=== PATIENT | male | born 1950 | race Caucasian/White ===

== ENCOUNTER 2016-11-29 10:49 | Outpatient (CLI) | payer OTHER | END 2016-11-29 10:50 | disposition home or self-care (01) | DX: M17.11 Unilateral primary osteoarthritis, right knee (principal); M25.561 Pain in right knee ==

== ENCOUNTER 2017-08-24 08:04 | Outpatient (CLI) | payer OTHER | END 2017-08-24 08:05 | disposition home or self-care (01) | LOC: LAB.F 08:04 | PROVIDERS: ATTEND Family Medicine | DX: Z11.59 Encounter for screening for other viral diseases (principal) | CPT/HCPCS: 36415; 86803 ==

== ENCOUNTER 2017-11-01 12:04 | Outpatient (CLI) | payer MEDICARE, OTHER ==
--- NOTE | 2017-11-01 17:29 | XRAY Preliminary Report ---
Exam: XR HAND 3 VIEW LT IMPRESSION: 1. Equivocal nondisplaced avulsion fracture anterior base fourth distal phalanx. Correlate clinically to determine significance. 2. Mild inflammatory arthropathy of the interphalangeal joints. [facility] SITE ID: [id number]
--- NOTE | 2017-11-01 17:45 | XRAY Report ---
EXAM: LEFT HAND RADIOGRAPHY EXAM DATE: 11/01/2017 12:26 PM. CLINICAL HISTORY: Fourth finger and hand pain following fall onto outstretched hand. COMPARISON: 02/11/2015. TECHNIQUE: 3 views. FINDINGS: Bones: Equivocal 4 x 6 mm avulsion fracture anterior aspect base of fourth distal phalanx. The rest of the trabecular and cortical patterns are unremarkable. Joints: Progression of mild inflammatory arthropathy involving the interphalangeal joints, greatest i nvolving the DIP joints. No subluxation. Soft Tissues: Normal. No soft tissue swelling. IMPRESSION: 1. Equivocal nondisplaced avulsion fracture anterior base fourth distal phalanx. Correlate clinically to determine significance. 2. Mild inflammatory arthropathy of the interphalangeal joints. [facility] Referring Provider Line: [phone] SITE ID: [id number]
== END 2017-11-01 12:05 | disposition home or self-care (01) ==
LOC: DI.S 12:04
PROVIDERS: ATTEND Family Medicine
DX: S69.92XA Unspecified injury of left wrist, hand and finger(s), initial encounter (principal); S62.665A Nondisplaced fracture of distal phalanx of left ring finger, initial encounter for closed fracture

== ENCOUNTER 2018-04-20 11:54 | Outpatient (CLI) | payer MEDICARE, OTHER ==
[2018-04-20 18:26] LABS: CHOL/HDL RATIO 4.2 (<5.0); CHOLESTEROL 198 mg/dL; HDL CHOLESTEROL 47 mg/dL; LDL CHOLESTEROL,CALCULATED 125 mg/dL; LDL/HDL RATIO 2.7 (<3.6); VLDL CHOLESTEROL 26 mg/dL
[2018-04-20 18:39] LABS: THYROID STIMULATING HORMONE 0.78 uIU/mL (0.34-5.60)
[2018-04-20 18:41] LABS: FREE T4 (FREE THYROXINE) 0.61 ng/dL (0.58-1.64)
[2018-04-20 18:45] LABS: FERRITIN 38.3 ng/mL (23.9-336.2); TOTAL T3 2.46 ng/mL (0.87-1.78)
[2018-04-24 21:18] LABS: T3 REVERSE 10 ng/dL (8-25)
== END 2018-04-20 11:55 | disposition home or self-care (01) ==
LOC: LAB.F 11:54
PROVIDERS: ATTEND Family Medicine
DX: Z00.00 Encounter for general adult medical examination without abnormal findings (principal); D64.9 Anemia, unspecified; E78.00 Pure hypercholesterolemia, unspecified; E55.9 Vitamin D deficiency, unspecified
CPT/HCPCS: 36415; 80061; 82306; 82626; 82728; 83721; 84439; 84443; 84480; 84481; 84482

== ENCOUNTER 2018-05-14 03:56 | Outpatient (CLI) | payer MEDICARE, OTHER | END 2018-05-14 03:57 | disposition critical access hospital (66) | LOC: EMS 03:56 | PROVIDERS: ATTEND Surgery | DX: R10.9 Unspecified abdominal pain (principal) | CPT/HCPCS: A0425; A0429 ==

== ENCOUNTER 2018-05-14 04:56 | Observation (INO) | payer MEDICARE, OTHER ==
[2018-05-14] MEDS ORDERED: SODIUM CHLORIDE 0.9% 1,000 ML IV ONE ×2 (05:03→06:23)
[2018-05-14] MEDS ORDERED: MORPHINE 10 MG/ML VIAL IVP STA (05:03)
--- NOTE | 2018-05-14 05:06 | ED Physician Documentation ---
PD HPI ABD PAIN - Stated complaint Stated Complaint: ABD PAIN - Chief complaint Chief Complaint: Abd Pain - History obtained from History obtained from: Patient, EMS - History of Present Illness Timing - onset: Yesterday Timing - details: Gradual onset, Still present Quality: Cramping, Aching, Sharp Location: RUQ, RLQ Associated symptoms: Fever, Loss of appetite. No: Nausea, Vomiting, Hematemesis , Diarrhea Similar symptoms before: Has not had sx before Recently seen: Not recently seen - Additional information Additional information: Patient is a 67 year old male with a history of dyslipidemia who is presenting to the emergency department for abdominal pain. patient states that the symptoms started yesterday afternoon. Patient states that the last thing that he ate was bread pudding and the pain started not too long after that. patient reports right upper quadrant and right lower quadrant pain. Patient denies any nausea or vomiting or urinary complaints. Review of Systems Ten Systems: 10 systems reviewed and negative Constitutional: denies: Fever Cardiac: denies: Chest pain / pressure, Palpitations GI: reports: Abdominal Pain, Nausea, Vomiting : denies: Dysuria, Frequency, Hesitancy PD PAST MEDICAL HISTORY - Past Medical History Cardiovascular: None, High cholesterol Respiratory: None Endocrine/Autoimmune: None GI: GERD : None Psych: Depression Musculoskeletal: None Derm: None - Past Surgical History General: Colonoscopy HEENT: Tonsil/Adenoidectomy - Present Medications Home Medications: Ambulatory Orders Medication Instructions Recorded Confirmed Buspirone HCl 15 mg PO DAILY 06/25/13 05/14/18 Sertraline HCl [Zoloft] 100 mg PO DAILY 06/25/13 05/14/18 Simvastatin [Zocor] 40 mg PO QPM 06/25/13 05/14/18 lamoTRIgine [Lamotrigine] 200 mg PO BID 06/25/13 05/14/18 Ezetimibe [Zetia] 10 mg PO QD 06/26/13 05/14/18 Omeprazole [PriLOSEC] 20 mg PO BIDAC 06/26/13 05/14/18 Tamsulosin [Flomax] 0.4 mg PO DAILY 06/26/13 05/14/18 Fexofenadine HCl [Fexofenadine HCl] 180 mg PO DAILY 05/14/18 05/14/18 Fluticasone/Salmeterol [Advair 1 puffs INH BID 05/14/18 05/14/18 500-50 Diskus] Liothyronine [Cytomel] 15 mcg PO DAILY 05/14/18 05/14/18 Meloxicam [Meloxicam] 15 mg PO DAILY 05/14/18 05/14/18 Tiotropium [place] [Spiriva 2 puffs INH DAILY 05/14/18 05/14/18 Respimat] - Allergies Allergies/Adverse Reactions: Allergies Allergy/AdvReac Type Severity Reaction Status Date / Time No Known Drug Allergies Allergy Verified 05/14/18 05:02 - Social History Does the pt smoke?: No Smoking Status: Never smoker Does the pt drink ETOH?: Yes - Immunizations Immunizations are current?: Yes - POLST Patient has POLST: Yes POLST Status: Full Code PD ED PE NORMAL - General General: Alert and oriented X 3 - HEENT HEENT: Atraumatic - Cardiac Cardiac: RRR - Respiratory Respiratory: No respiratory distress, Clear bilaterally - Derm Derm: Normal color, Warm and dry - Extremities Extremities: No deformity - Neuro Neuro: Alert and oriented X 3 Eye Opening: Spontaneous Motor: Obeys Commands Verbal: Oriented GCS Score: 15 - Psych Psych: Normal mood PD ED PE EXPANDED - General General: Alert, No acute distress - HEENT HEENT: Dry mucous membranes - Abdomen Abdomen: Tender to palpation, Guarding, RUQ, RLQ Results - Vitals Vitals: Vital Signs - 24 hr 05/14/18 05/14/18 04:58 06:15 Temperature 37.2 C Heart Rate 86 78 Respiratory 14 15 Rate Blood Pressure 130/83 H 121/68 O2 Saturation 96 99 Oxygen O2 Source Room air - Labs Labs: Laboratory Tests 05/14/18 05/14/18 05/14/18 05:13 05:13 05:13 WBC 18.5 H RBC 4.74 Hgb 14.3 Hct 43.2 MCV 91.1 MCH 30.1 MCHC 33.0 RDW 14.0 Plt Count 372 MPV 6.2 L Neut # (Auto) 15.5 H Lymph # (Auto) 1.0 L Gallia # (Auto) 1.6 H Eos # (Auto) 0.3 Baso # (Auto) 0.1 Absolute Nucleated RBC 0.00 Nucleated RBC % 0.0 Sodium 131 L Potassium 3.9 Chloride 95 L Carbon Dioxide 29 Anion Gap 7.0 BUN 19 Creatinine 0.7 Estimated GFR (MDRD) 113 Glucose 132 H Lactic Acid Calcium 9.0 Total Bilirubin 0.9 AST 21 ALT 18 Alkaline Phosphatase 71 Troponin I < 0.04 Total Protein 7.5 Albumin 4.0 Globulin 3.5 Albumin/Globulin Ratio 1.1 Lipase 18 L Urine Color Urine Clarity Urine pH Ur Specific [place] Urine Protein Urine Glucose (UA) Urine Ketones Urine Occult Blood Urine Nitrite Urine Bilirubin Urine Urobilinogen Ur Leukocyte Esterase Ur Microscopic Review Urine Culture Comments 05/14/18 05/14/18 05:13 05:23 WBC RBC Hgb Hct MCV MCH MCHC RDW Plt Count MPV Neut # (Auto) Lymph # (Auto) Gall[place] # (Auto) Eos # (Auto) Baso # (Auto) Absolute Nucleated RBC Nucleated RBC % Sodium Potassium Chloride Carbon Dioxide Anion Gap BUN Creatinine Estimated GFR (MDRD) Glucose Lactic Acid 1.3 Calcium Total Bilirubin AST ALT Alkaline Phosphatase Troponin I Total Protein Albumin Globulin Albumin/Globulin Ratio Lipase Urine Color YELLOW Urine Clarity CLEAR Urine pH 6.5 Ur Specific [place] 1.020 Urine Protein NEGATIVE Urine Glucose (UA) NEGATIVE Urine Ketones 40 H Urine Occult Blood NEGATIVE Urine Nitrite NEGATIVE Urine Bilirubin NEGATIVE Urine Urobilinogen 0.2 (NORMAL) Ur Leukocyte Esterase NEGATIVE Ur Microscopic Review NOT INDICATED Urine Culture Comments NOT INDICATED - Rads (name of study) ct abd/pelvis Radiology: Final report received (enlarged gallbladder, wall thickening and surrounding fluid consistent with cholecystitis) PD MEDICAL DECISION MAKING - ED course Complexity details: reviewed old records, reviewed results, re-evaluated patient , considered differential, d/w patient ED course: Patient was seen and examined at bedside. IV access was gained and labs were drawn. Imaging was ordered. Patient was treated with a fluid bolus and morphine for pain. When patient returned from imaging results were reviewed. Patient was found to have a leukocytosis of 18.[address] findings of acute cholecystitis. call worker surgeon was contacted and the case was discussed with Dr. Jac Maciel who stated he would consult on the patient. Patient was started on zosyn. hospitalist was contacted and the patient was admitted for further care and likely surgery. - Sepsis Event Vital Signs: Vital Signs - 24 hr 05/14/18 05/14/18 04:58 06:15 Temperature 37.2 C Heart Rate 86 78 Respiratory 14 15 Rate Blood Pressure 130/83 H 121/68 O2 Saturation 96 99 Oxygen O2 Source Room air Departure - Departure Disposition: 66 [facility] DC/[facility] Clinical Impression: Cholecystitis Condition: Good Discharge Date/Time: 05/14/18 08:16
[2018-05-14 05:34] LABS: BILIRUBIN,URINE NEGATIVE (NEGATIVE); GLUCOSE, URINE (UA) NEGATIVE (NEGATIVE); KETONES,URINE (UA) 40 mg/dL (NEGATIVE); LEUKOCYTE ESTERASE, URINE NEGATIVE (NEGATIVE); NITRITE,URINE NEGATIVE (NEGATIVE); OCCULT BLOOD,URINE NEGATIVE (NEGATIVE); PH,URINE 6.5 PH (5.0-7.5); PROTEIN,URINE NEGATIVE (NEGATIVE); UROBILINOGEN,URINE 0.2 (NORMAL) E.U./dL (NORMAL)
[2018-05-14 05:39] LABS: CLARITY,URINE CLEAR (CLEAR)
[2018-05-14 05:40] LABS: BASOPHILS # (AUTO) 0.1 10^3/uL (0.0-0.1); BASOPHILS % (AUTO) 0.5 %; EOSINOPHILS # (AUTO) 0.3 10^3/uL (0.0-0.7); EOSINOPHILS % (AUTO) 1.4 %; HGB - HEMOGLOBIN 14.3 g/dL (14.0-18.0); LYMPHOCYTES % (AUTO) 5.5 %; MEAN CORPUSCULAR HEMOGLOBIN 30.1 pg (27.0-31.0); MEAN CORPUSCULAR VOLUME 91.1 fL (80.0-94.0); MEAN PLATELET VOLUME 6.2 fL (7.4-11.4); MONOCYTES # (AUTO) 1.6 10^3/uL (0.0-1.0); MONOCYTES % (AUTO) 8.8 %; NEUTROPHILS # (AUTO) 15.5 10^3/uL (1.5-6.6); NEUTROPHILS % (AUTO) 83.8 %; PLT - PLATELET COUNT 372 10^3/uL (130-450); RED BLOOD COUNT 4.74 10^6/uL (4.70-6.10); WHITE BLOOD COUNT 18.5 x10^3/uL (4.8-10.8)
[2018-05-14 05:51] LABS: ALBUMIN/GLOBULIN RATIO 1.1 (1.0-2.2); BILIRUBIN,TOTAL 0.9 mg/dL (0.2-1.0); CREATININE 0.7 mg/dL (0.6-1.2); TOTAL PROTEIN 7.5 g/dL (6.7-8.2)
[2018-05-14] MEDS ORDERED: IOPAMIDOL-300 100 ML VIAL ONE (06:25)
[2018-05-14] MEDS ORDERED: IOPAMIDOL-300 100 ML VIAL IVP ONE (06:29)
[2018-05-14] MEDS ORDERED: PIPERACILLIN/TAZOBACTAM 3.375 GM in SODIUM CHLORIDE 0.9% MINIBAG 100 ML IV STA (06:58)
--- NOTE | 2018-05-14 07:14 | CT Report ---
Procedure Date: 05/14/2018 Accession Number: [id number] / [id number] Procedure: CT - Abdomen/Pelvis W/ CPT Code: FULL RESULT: EXAM: CT ABDOMEN AND PELVIS EXAM DATE: 05/14/2018 06:42 AM. CLINICAL HISTORY: Ruq and rlq abd pain. COMPARISONS: None. TECHNIQUE: Routine helical CT imaging was performed through the abdomen and pelvis. IV contrast: ISOVUE 300 100mL. Enteric contrast: No. Reconstructions: Coronal and sagittal. In accordance with CT protocol optimization, one or more of the following dose reduction techniques were utilized for this exam: automated exposure control, adjustment of mA and/or KV based on patient size, or use of iterative reconstructive technique. FINDINGS: Lung Bases: Unremarkable. Liver: Normal. Gallbladder/Bile Ducts: The gallbladder is distended, and there is mild wall thickening as well as adjacent inflammatory fat stranding. The common bile duct is dilated, measuring up to 10 mm in diameter. No stones visible by CT. No evidence of intrahepatic biliary dilatation. Spleen: Normal. Pancreas: Mild to moderate atrophy. Otherwise within normal limits. Adrenal Glands: Normal. Kidneys: Nonobstructing calculi in the right kidney measuring up to 3 mm. Punctate nonobstructing calculi in the inferior pole of the left kidney. No hydronephrosis bilaterally. Peritoneal Cavity/Bowel: No ascites or pneumoperitoneum. No bowel obstruction or abnormal stool burden. Mild diverticulosis without diverticulitis. The appendix is not visualized and may be surgically absent. Pelvic Organs: The urinary bladder and visualized pelvic organs demonstrate no significant abnormality. Vasculature: Mild atherosclerosis without aneurysm. Bones: No significant abnormality. Other: None. IMPRESSION: 1. Findings are concerning for acute cholecystitis. Consider ultrasound for further evaluation. 2. Chronic and incidental findings as above. [facility]
[2018-05-14] MEDS ORDERED: SODIUM CHLORIDE FLUSH 0.9% 10 ML SYRINGE IVP PRN ×2 (07:18→13:34)
--- NOTE | 2018-05-14 07:23 | HISTORY & PHYSICAL EXAMINATION ---
Chief Complaint - Chief Complaint Chief Complaint: abdominal pain History of Present Illness - Admitted From Admitted From:: ED - History Obtained From Records Reviewed: yes History obtained from: chart review, patient Exam Limitations: none - History of Present Illness HPI Comment/Other: Estrada Salvador is a 67-year old male with a past medical history of BPH, JACKIE-uses a nasal CPAP, hyperlipidemia, asthma, chronic sinusitis, depression and GERD. He was in his usual state of health when he began having extreme abdominal pain that was sharp, dull and cramping in his RLQ and started yesterday at 12 noon. He does not admit to anything out of the ordinary in his diet prior to this, and this has never happened before. This pain continued, but varied in intensity and was accompanied with nausea and emesis. He went to bed and was awoke by this agonizing, crippling pain that was much worse, so he and his called 911. Once in the ED, he had imaging that showed likely cholecystitis. He denied shortness of breath, chest pain, diarrhea, bleeding, dizziness, recent illness, fever, chills or headache. Lab results show an elevated WBC of 18.5, low sodium of 131, negative troponin and no other lab abnormalities. General surgery was consulted and hospitalist will admit to observation for management of his other chronic medical conditions. 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 He does not have any blood related siblings. Living arrangement: At home Living Situation: With spouse/s.o. Social History Notes: The patient moved to the [place] a few years ago to retire. 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 He lives independently with his , has a dog named Renuka. He denies alcohol abuse, tobacco or illicit drug use. He wishes to be a FULL code. - Substance History Use: Uses substance without health or social issues: NONE Abuse: Recurrent use of substance despite neg consequences: NONE Dependence: Experiences withdrawal or developed tolerances: NONE - POLST Patient has POLST: No POLST Status: Full Code Meds/Allgy - Home Medications Home Medications: Ambulatory Orders Medication Instructions Recorded Confirmed Buspirone HCl 15 mg PO DAILY 06/25/13 05/14/18 Sertraline HCl [Zoloft] 100 mg PO DAILY 06/25/13 05/14/18 Simvastatin [Zocor] 40 mg PO QPM 06/25/13 05/14/18 lamoTRIgine [Lamotrigine] 200 mg PO BID 06/25/13 05/14/18 Ezetimibe [Zetia] 10 mg PO QD 06/26/13 05/14/18 Omeprazole [PriLOSEC] 20 mg PO BIDAC 06/26/13 05/14/18 Tamsulosin [Flomax] 0.4 mg PO DAILY 06/26/13 05/14/18 Fexofenadine HCl [Fexofenadine HCl] 180 mg PO DAILY 05/14/18 05/14/18 Fluticasone/Salmeterol [Advair 1 puffs INH BID 05/14/18 05/14/18 500-50 Diskus] Liothyronine [Cytomel] 15 mcg PO DAILY 05/14/18 05/14/18 Meloxicam [Meloxicam] 15 mg PO DAILY 05/14/18 05/14/18 Tiotropium [place] [Spiriva 2 puffs INH DAILY 05/14/18 05/14/18 Respimat] - Allergies Allergies/Adverse Reactions: Allergies Allergy/AdvReac Type Severity Reaction Status Date / Time No Known Drug Allergies Allergy Verified 05/14/18 05:02 Review of Systems - Constitutional Constitutional: reports: Poor appetite. denies: Fatigue, Fever, Chills - Eyes Eyes: denies: Pain, Irritation, Amaurosis, Blurred vision - Ears, Nose & Throat Ears, Nose & Throat: reports: Nasal congestion (chronic), Postnasal drainage. denies: Ear pain, Hearing loss, Hearing aids, Tinnitus - Cardiovascular Cariovascular: denies: Irregular heart rate, Palpitations, Chest pain, Edema - Respiratory Respiratory: reports: Cough, Wheezing - Gastrointestinal Gastrointestinal: reports: Abdominal pain, Abdominal distention, Change in bowel habits, Nausea, Reflux/heartburn, Bloating, Poor appetite - Genitourinary Genitourinary: reports: Nocturia - Musculoskeletal Musculoskeletal: denies: Muscle pain, Back pain, Muscle aches, Stiffness - Integumentary Integumentary: reports: Dryness. denies: Rash, Pruritis, Lesions - Neurological Neurological: reports: Headache. denies: General weakness, Focal weakness - Psychiatric Psychiatric: reports: Depression. denies: Suicidal - Endocrine Endocrine: denies: Polyuria, Polydypsia - Hematologic/Lymphatic Hematologic/Lymphatic: denies: Anemia, Bruising, Petechiae, Recurrent infections - All Other Systems All Other Systems: reports: Reviewed and negative Exam - Vital Signs Reviewed Vital Signs: Yes Vital Signs: Vital Signs x48h Temp Pulse Resp BP Pulse Ox 05/14/18 06:15 78 15 121/68 99 05/14/18 04:58 37.2 C 86 14 130/83 H 96 - Physical Exam General Appearance: positive: No acute distress, Alert Eyes Bilateral: positive: Normal inspection, PERRL ENT: positive: ENT inspection nml, Pharynx nml, No signs of dehydration Neck: positive: Nml inspection, Thyroid nml, No JVD, Trachea midline Respiratory: positive: Chest non-tender, No respiratory distress, Wheezes Cardiovascular: positive: Regular rate & rhythm, No gallop, Systolic murmur Peripheral Pulses: positive: 2+ Abdomen: positive: Tenderness (RLQ pain, increased with palpation), Guarding, Rebound, Abnml bowel sounds, Other (rounded, soft) Back: positive: Nml inspection Skin: positive: No rash, Warm, Dry Extremities: positive: Non-tender, Full ROM, Nml appearance, No pedal edema Neurologic/Psychiatric: positive: Oriented x3, CN's nml (2-12), Motor nml, Sensation nml, Mood/affect nml Reflexes: Bicep (R): 2+, Bicep (L): 2+ Conclusion/Plan - Problem List (1) Cholecystitis Conclusion/Plan: The patient was brought to the ED via ambulance as he had crippling pain in his right lower abdomen. Upon imaging, the gall bladder is noted to be distended, with mild wall thickening, and adjacent inflammatory fat stranding. Also, the common bile duct was dilated at [address] Cirilo Maciel was consulted and he will plan for a laproscopic surgery for removal of the gall bladder. Plan: Surgery this morning. Using the revised cardiac risk index for pre-operative risk this patient is 0.04 %. (2) Abdominal pain Conclusion/Plan: The patient started having abdominal pain at 12 noon yesterday and this pain continued, and eventually woke him up in the night. He describes the pain as cramping, aching, dull, and sharp and points to RLQ as the location. He was given IV morphine in the ED, which improved his pain to the point where when I first met him he was able to smile. Imaging confirms a likely acute cholecystitis. Plan: Continue to treat for pain using IV medications. (3) Hyperlipidemia Conclusion/Plan: The patient denies prior IN or strokes. He is precribed Zetia and a statin at home. He denies daily exercise, but believes his diet is healthy. Plan: Resume med post op. (4) JACKIE (obstructive sleep apnea) Conclusion/Plan: The patient believes he was first diagnosed with this about 5 years ago and sees a bobbin painter in the [place] [facility]. He uses a nasal device nightly. He is found to have a R BBB on EKG which can be seen with right heart strain. Plan: Obtain Echo and encourage home unit use. (5) Asthma Conclusion/Plan: The patient takes a LABA at home and was seen by his PCP within the last month for this. He denies recent pneumonia or increased SOB. Upon exam today, wheezing is appreciated both posterior and anterior chest. He is also found to have upper airway congestions, that he attributes to his CPAP use. He denies chronic steroid nasal spray or daily nasal cleanse. Plan: Prescribed Flonase, and recommend chronic use. Obtain Echo, encourage him to use home CPAP unit. Qualifiers: Asthma severity: moderate - Lab Results Lab results reviewed: Yes Fish Bones: 05/14/18 05:13 05/14/18 05:13 - Diagnostic Imaging Results Diagnostic Imaging Results: positive: Prelim report reviewed, Final report reviewed Diagnostic Imaging Results Comments: Abdominal/pelvis CT: IMPRESSION: 1. Findings are concerning for acute cholecystitis. Consider ultrasound for further evaluation. 2. Chronic and incidental findings as above. Chest x-ray completed and pending. Echocardiogram ordered and will be completed post op. - EKG Results EKG Interpreted Independently: Yes EKG Comparison: Changed from prior EKG (R BBB) Core Measures - Anticipated LOS I expect patient to be DC'd or transferred within 96 hours.: Yes - DVT/VTE - Prophylaxis VTE/DVT Device ordered at admit?: Yes VTE/DVT Prophylaxis med ordered at admit?: No Not Ordered - Medical Reason: Contraindicated - Stroke - Rehab Assessment Rehab services assessment to be ordered?: No Not Ordered - Medical Reason: Contraindicated - AMI - Statin at Admit Aspirin Prescribed on Admit: Yes Not Ordered - Medical Reason: Contraindicated
[2018-05-14] MEDS: POLYETHYLENE GLYCOL 3350 17 GM PACKET PO SCH (08:35)
--- NOTE | 2018-05-14 09:19 | CONSULTATION NOTE ---
Referring Provider Name of Referring Provider:: KELLEN Lisa Consult Date: 05/14/18 Chief Complaint - Chief Complaint Chief Complaint: abdominal pain History of Present Illness - Admitted From Admitted From:: ER - History Obtained From Records Reviewed: yes History obtained from: pt Exam Limitations: none - History of Present Illness HPI Comment/Other: 67 yo male with abrupt onset of severe constant steady right sided abdominal pain approximately 24 hours ago. Sx began after eating bread pudding for breakfast. No fever/chills, N/V, change in bowel habits, melena or hematochezia , wt changes, dysuria or prior similar episodes. He has a hx of GERD for many years well controlled with PPI therapy with no dysphagia and a favorable EGD approx 5 yrs ago. No hx PUD, hepatitis/jaundice. Unknown FH due to his being adopted. He reports a nl colonoscopy in 2012. He presented to the ER early this am when sx failed to improve. He is feeling better now after administration of narcotics. History - Past Medical History Cardiovascular: reports: High cholesterol Respiratory: reports: Asthma, Other (environmental allergies) Neuro: reports: None Endocrine/Autoimmune: reports: HyPOthyroidism GI: reports: GERD : reports: Benign prostate hypertrophy HEENT: reports: None Psych: reports: Depression, Anxiety Musculoskeletal: reports: None Derm: reports: None MRSA Hx?: No - Past Surgical History General: reports: Colonoscopy, EGD HEENT: reports: Tonsil/Adenoidectomy - Family & Social History Family History Comment/Other: unknown/adopted Living arrangement: At home Living Situation: With spouse/s.o. - Substance History Use: Uses substance without health or social issues: Alcohol (1-2 drinks/day), Cannabis (1-2 times/week) - POLST Patient has POLST: Yes POLST Status: Full Code Meds/Allgy - Home Medications Home Medications: Ambulatory Orders Medication Instructions Recorded Confirmed Buspirone HCl 15 mg PO DAILY 06/25/13 05/14/18 Sertraline HCl [Zoloft] 100 mg PO DAILY 06/25/13 05/14/18 Simvastatin [Zocor] 40 mg PO QPM 06/25/13 05/14/18 lamoTRIgine [Lamotrigine] 200 mg PO BID 06/25/13 05/14/18 Ezetimibe [Zetia] 10 mg PO QD 06/26/13 05/14/18 Omeprazole [PriLOSEC] 20 mg PO BIDAC 06/26/13 05/14/18 Tamsulosin [Flomax] 0.4 mg PO DAILY 06/26/13 05/14/18 Fexofenadine HCl [Fexofenadine HCl] 180 mg PO DAILY 05/14/18 05/14/18 Fluticasone/Salmeterol [Advair 1 puffs INH BID 05/14/18 05/14/18 500-50 Diskus] Liothyronine [Cytomel] 15 mcg PO DAILY 05/14/18 05/14/18 Meloxicam [Meloxicam] 15 mg PO DAILY 05/14/18 05/14/18 Tiotropium [place] [Spiriva 2 puffs INH DAILY 05/14/18 05/14/18 Respimat] - Allergies Allergies/Adverse Reactions: Allergies Allergy/AdvReac Type Severity Reaction Status Date / Time No Known Drug Allergies Allergy Verified 05/14/18 05:02 Review of Systems - Constitutional Constitutional: denies: Fever, Chills, Weight gain, Weight loss - Cardiovascular Cariovascular: denies: Irregular heart rate, Palpitations, Chest pain - Respiratory Respiratory: reports: Cough, Sputum production, Wheezing (well controlled with meds) - Gastrointestinal Gastrointestinal: reports: Abdominal pain (see HPI), Reflux/heartburn. denies: Constipation, Diarrhea, Change in bowel habits, Rectal bleeding, Black stools, Bloody stools, Nausea, Vomiting, Coffee grounds emesis - Genitourinary Genitourinary: denies: Dysuria - Psychiatric Psychiatric: reports: Depression (well controlled with meds), Anxiety (well controlled with meds) - Hematologic/Lymphatic Hematologic/Lymphatic: denies: Bruising, Petechiae, Blood clots, Bleeding tendencies, Recurrent infections - All Other Systems All Other Systems: reports: Reviewed and negative Exam - Vital Signs Reviewed Vital Signs: Yes Vital Signs: Vital Signs x48h Temp Pulse Pulse Resp BP BP Pulse Ox 05/14/18 08:19 37.8 C H 88 16 134/65 H 98 05/14/18 07:56 37.2 C 74 18 126/75 99 - Physical Exam General Appearance: positive: Alert, Mild distress Eyes Bilateral: positive: Normal inspection, Conjunctivae nml, No scleral icterus ENT: positive: ENT inspection nml, Pharynx nml, No signs of dehydration Neck: positive: Nml inspection, No JVD. negative: Lymphadenopathy (R), Lymphadenopathy (L) Respiratory: positive: Chest non-tender, No respiratory distress, Rhonchi ( scattered posteriorly). negative: Wheezes, Rales Cardiovascular: positive: Regular rate & rhythm, No murmur, No gallop Abdomen: positive: No organomegaly, Nml bowel sounds, No distention, Tenderness (RUQ localized peritoneal signs; neg Diggs's sign), Guarding, Rebound. negative: Hepatomegaly, Splenomegaly, Mass Back: positive: Nml inspection. negative: CVA tenderness (R), CVA tenderness (L ) Skin: positive: Color nml, No rash, Warm, Dry Extremities: positive: Non-tender, Nml appearance, No pedal edema. negative: Calf tenderness Neurologic/Psychiatric: positive: Oriented x3 Conclusion/Plan - Diagnosis Diagnosis: Acute cholecystitis, appears to be acalculous; but can not exclude calculous disease and choledocholithiasis based on CT alone. Other medical problems appear stable at this time. - Plan Plan: Laparoscopic cholecystectomy with poss cholangiograms today. PAR conf with pt and consent obtained. Antibiotics have been initiated and will pretreat with a Duoneb for his asthma, and check CXR and ECG preop as well. - Lab Results Fish Bones: 05/14/18 05:13 05/14/18 05:13 Other Lab Results: LFT, lipase nl - Diagnostic Imaging Results Diagnostic Imaging Results: positive: Final report reviewed, Read independently Diagnostic Imaging Results Comments: CT abd/pelvis: distended gallbladder with thickened wall, pericholecystic fluid and stranding, dilated CBD to 10 mm, no stones noted in gallbladder or ducts. No other abnormalities noted. - EKG Results EKG Interpreted Independently: No
[2018-05-14] MEDS: IPRATROPIUM/ALBUTEROL 3 ML NEB INH PRN ×2 (09:38→16:40)
[2018-05-14] MEDS: SODIUM CHLORIDE FLUSH 0.9% 10 ML SYRINGE IVP SCH ×3 (10:16→18:31)
[2018-05-14] MEDS ORDERED: BUPIVACAINE 0.5%-EPI 1:200000 PF 30 ML VIAL ONE (10:32)
[2018-05-14] MEDS ORDERED: IOTHALAMATE MEGLUMINE 50 ML VIAL ONE (10:33)
--- NOTE | 2018-05-14 11:29 | XRAY Report ---
Procedure Date: 05/14/2018 Accession Number: [id number] / [id number] Procedure: XR - Chest 2 View X-Ray CPT Code: 41148 FULL RESULT: EXAM: CHEST RADIOGRAPHY EXAM DATE: 05/14/2018 09:31 AM. CLINICAL HISTORY: Asthma, preop. COMPARISON: 12/26/2015. TECHNIQUE: 2 views. FINDINGS: Lungs/Pleura: No focal opacities evident. No pleural effusion. No pneumothorax. Normal volumes. Mediastinum: Heart and mediastinal contours are stable. Other: None. IMPRESSION: No acute radiographic abnormality. RADIA
[2018-05-14] MEDS ORDERED: IOTHALAMATE MEGLUMINE 50 ML VIAL IVP ONE ×2 (11:33)
[2018-05-14] MEDS ORDERED: BUPIVACAINE 0.5%-EPI 1:200000 PF 30 ML VIAL SUBQ ONE ×2 (11:34)
[2018-05-14] MEDS ORDERED: LACTATED RINGERS 1,000 ML IV ONE ×2 (11:35→12:33)
[2018-05-14] MEDS ORDERED: TRANEXAMIC ACID 1,000 MG/10 ML VIAL IV ONE (11:55)
[2018-05-14] MEDS ORDERED: DEXAMETHASONE 4 MG/ML VIAL IVP ONE (11:55)
[2018-05-14] MEDS ORDERED: GLYCOPYRROLATE 1 MG/5 ML VIAL IVP ONE (11:55)
[2018-05-14] MEDS ORDERED: PROPOFOL 200 MG/20 ML VIAL IVP ONE (11:55)
[2018-05-14] MEDS ORDERED: KETOROLAC 30 MG/ML VIAL IVP ONE (11:55)
[2018-05-14] MEDS ORDERED: MIDAZOLAM 2 MG/2 ML VIAL IVP ONE (11:55)
[2018-05-14] MEDS ORDERED: NEOSTIGMINE 1 MG/1 ML 10 ML MDV IVP ONE (11:55)
[2018-05-14] MEDS ORDERED: ONDANSETRON 4 MG/2 ML VIAL IVP ONE (11:55)
[2018-05-14] MEDS ORDERED: ROCURONIUM 50 MG/5 ML VIAL IVP ONE (11:55)
[2018-05-14] MEDS ORDERED: fentaNYL 100 MCG/2 ML VIAL IVP ONE (11:55)
[2018-05-14] MEDS ORDERED: LIDOCAINE-MPF 2% 5 ML VIAL IM ONE (11:55)
--- NOTE | 2018-05-14 13:42 | XRAY Report ---
Procedure Date: 05/14/2018 Accession Number: [id number] / [id number] Procedure: [place] - OR Cholangiogram CPT Code: FULL RESULT: EXAM: INTRAOPERATIVE CHOLANGIOGRAM EXAM DATE: 05/14/2018 12:34 PM. CLINICAL HISTORY: Cholelithiasis. COMPARISONS: CT abdomen and pelvis from earlier same day. TECHNIQUE: Dr. Maciel performed the procedure. Please see the operative notes for details. Fluoroscopy Time: 16 seconds. Number of Images: 3. FINDINGS IMPRESSION: A catheter has been placed into the cystic duct remnant following cholecystectomy. Cholangiography shows opacification of the bile ducts. Visualized ducts show no filling defects. Spill of contrast into the duodenum documented. RADIA
--- NOTE | 2018-05-14 13:57 | OPERATIVE REPORT ---
Operative Report - General Admit Date: 05/14/18 Procedure Date: 05/14/18 Planned Procedure: Lap Jeanie with IOC Pre-Op Diagnosis: acute acalculous cholecystitis Procedure Performed: Lap Jeanie with IOC Post Op Diagnosis: same - Procedure Note Primary Surgeon: Cirilo Maciel MD Anesthesia Provider: Tor Loya CRNA Anesthesia Technique: General ET tube Pathology: galbladder IV Fluids (mL): 1,400 Estimated Blood Loss (mL): 250 Complications: None
[2018-05-14] MEDS: PIPERACILLIN/TAZOBACTAM 3.375 GM in SODIUM CHLORIDE 0.9% MINIBAG 100 ML IV SCH ×2 (14:10→18:35)
[2018-05-14] MEDS ORDERED: SODIUM CHLORIDE 0.65% NASAL SPRAY NAS PRN (14:37)
[2018-05-14] MEDS: LACTATED RINGERS 1,000 ML IV SCH (15:00)
[2018-05-14] MEDS: ACETAMINOPHEN 1,000 MG/100 ML 100 ML IV SCH ×2 (15:32→20:21)
[2018-05-14] MEDS: BUDESONIDE 0.5 MG/2 ML NEB INH SCH ×2 (16:40)
[2018-05-14 18:01] LABS: BASOPHILS # (AUTO) 0.1 10^3/uL (0.0-0.1); BASOPHILS % (AUTO) 0.4 %; EOSINOPHILS % (AUTO) 0.1 %; HGB - HEMOGLOBIN 12.7 g/dL (14.0-18.0); LYMPHOCYTES # (AUTO) 0.9 10^3/uL (1.5-3.5); LYMPHOCYTES % (AUTO) 7.3 %; MEAN CORPUSCULAR HEMOGLOBIN 29.6 pg (27.0-31.0); MEAN CORPUSCULAR HGB CONC 32.3 g/dL (32.0-36.0); MEAN CORPUSCULAR VOLUME 91.6 fL (80.0-94.0); MEAN PLATELET VOLUME 5.9 fL (7.4-11.4); MONOCYTES # (AUTO) 0.5 10^3/uL (0.0-1.0); MONOCYTES % (AUTO) 4.2 %; NEUTROPHILS # (AUTO) 11.3 10^3/uL (1.5-6.6); PLT - PLATELET COUNT 337 10^3/uL (130-450); RED CELL DISTRIBUTION WIDTH 13.9 % (12.0-15.0); WHITE BLOOD COUNT 12.9 x10^3/uL (4.8-10.8)
--- NOTE | 2018-05-14 18:05 | OPERATIVE REPORT ---
DATE OF SERVICE: 05/14/2018 Physician: Cirilo Maciel MD DATE OF PROCEDURE: 05/14/2018 PREOPERATIVE DIAGNOSIS: Acute acalculous cholecystitis. POSTOPERATIVE DIAGNOSIS: Acute acalculous cholecystitis. PROCEDURE PERFORMED: Laparoscopic cholecystectomy with intraoperative cholangiograms. ANESTHESIA: General endotracheal anesthesia by Tor Loya CRNA SURGEON: Cirilo Maciel MD ESTIMATED BLOOD LOSS: 250 mL; replaced 1400 mL of crystalloid solution. COMPLICATIONS: None. FINDINGS: The gallbladder was seen to be acutely inflamed with extensive pericholecystic adhesions, markedly thickened wall, but no stones within the lumen of the gallbladder. The cystic duct and common duct appeared to be of normal caliber. Cystic duct cholangiography was interpreted as normal. There were no filling defects, and there was free flow of contrast into the duodenum and good filling of the intrahepatic as well as extrahepatic bile ducts. Quality of the study was good, and there were no apparent complications from the cholangiogram. The visualized portions of the liver, stomach, small and large bowel, otherwise were within normal limits. INDICATIONS: The patient is a 67-year-old gentleman with approximately 24-hour history of sudden onset of severe right-sided abdominal pain. Evaluation revealed right-sided peritoneal signs and elevated white count, and a CT scan showed findings consistent with acute acalculous cholecystitis. His bile duct was also slightly dilated at 10 mm. He was advised to undergo laparoscopic cholecystectomy with intraoperative cholangiograms. TECHNIQUE: After informed consent, the patient was taken to the operating room and was placed under general endotracheal anesthesia. Preoperative preparation included application of sequential calf compression boots. He had previously been started on therapeutic dose of Zosyn. His abdomen was prepared with ChloraPrep solution and draped in the usual sterile fashion. An incision was made along the inferior edge of the umbilicus and carried down through the layers of the abdominal wall until the peritoneum was identified and entered sharply. A 10-mm Donna cannula was inserted and pneumoperitoneum achieved with carbon dioxide. A 10-mm 30-degree [place] telescope was inserted. Laparoscopy was carried out with findings as noted above. Three additional 5-mm ports were placed in the right upper quadrant. Instruments were passed. The pericholecystic adhesions were lysed bluntly and with electrocautery. The gallbladder was aspirated of approximately 50 mL of clear yellow bile, which allowed grasping the gallbladder and retracting it in the cephalad and lateral direction. The cystic triangle of Calot was exposed and carefully dissected using Hook electrocautery. The cystic duct and artery were each isolated adjacent to the gallbladder. A critical view of safety was obtained and the cystic duct was clipped at its junction with the gallbladder. It was incised distal to the clip and a taut cholangiogram catheter was inserted and cinefluorocholangiography was carried out with a 50:50 combination of Conray and saline. Findings were as noted above. Approximately 40 mL of the mixture was used. The cholangiogram catheter was then removed, and the cystic duct was triply clipped distal to the point of incision, doubly above, and then divided in between at the point of incision. The cystic artery was doubly clipped proximally and distally adjacent to the gallbladder, incised, and divided in between. The gallbladder was dissected from the liver bed using electrocautery for dissection and hemostasis. Because of the marked inflammation, the dissection resulted in oozing from the liver bed, which was eventually controlled with Surgicel pressure time and 1 gram of tranexamic acid intravenously. After hemostasis was finally assured and the gallbladder had been removed, the gallbladder was then placed in an organ retrieval bag and extracted and opened on the side table with findings as noted above, and the tissue sent for pathologic evaluation. The right upper quadrant was copiously irrigated with saline solution, following which instruments and cannulas were removed under direct vision. Pneumoperitoneum was allowed to escape, and the incisions were closed in layers using continuous 0 Vicryl. We reapproximated the midline fascia at the umbilicus, followed by 4-0 Monocryl, with subcuticular skin glue used for all the port sites, followed by Dermabond. A 20 mL of 0.5% Marcaine with epinephrine was infiltrated into the incision to assist in postoperative analgesia. The anesthesia was terminated. The patient was transferred to the recovery room in satisfactory condition. Sponge and needle counts were correct, and no drains were used. TD: 05/14/2018 14:03
[2018-05-14] MEDS: FLUTICASONE NASAL SPRAY NAS SCH (18:31)
[2018-05-15] MEDS: SODIUM CHLORIDE FLUSH 0.9% 10 ML SYRINGE IVP SCH ×4 (00:25→08:57)
[2018-05-15] MEDS: PIPERACILLIN/TAZOBACTAM 3.375 GM in SODIUM CHLORIDE 0.9% MINIBAG 100 ML IV SCH ×2 (00:25→06:03)
[2018-05-15] MEDS: LACTATED RINGERS 1,000 ML IV SCH (00:25)
[2018-05-15] MEDS: ACETAMINOPHEN 1,000 MG/100 ML 100 ML IV SCH ×2 (02:15→08:49)
[2018-05-15] MEDS ORDERED: PANTOPRAZOLE 40 MG TABLET PO SCH (07:00)
[2018-05-15 07:17] LABS: BASOPHILS % (AUTO) 0.2 %; EOSINOPHILS # (AUTO) 0.3 10^3/uL (0.0-0.7); EOSINOPHILS % (AUTO) 2.1 %; LYMPHOCYTES # (AUTO) 1.9 10^3/uL (1.5-3.5); LYMPHOCYTES % (AUTO) 13.9 %; MEAN CORPUSCULAR HEMOGLOBIN 30.8 pg (27.0-31.0); MEAN CORPUSCULAR HGB CONC 33.5 g/dL (32.0-36.0); MEAN CORPUSCULAR VOLUME 92.1 fL (80.0-94.0); MEAN PLATELET VOLUME 6.3 fL (7.4-11.4); MONOCYTES # (AUTO) 1.7 10^3/uL (0.0-1.0); NEUTROPHILS # (AUTO) 9.5 10^3/uL (1.5-6.6); NEUTROPHILS % (AUTO) 70.8 %; PLT - PLATELET COUNT 313 10^3/uL (130-450); RED BLOOD COUNT 3.91 10^6/uL (4.70-6.10); RED CELL DISTRIBUTION WIDTH 13.8 % (12.0-15.0); WHITE BLOOD COUNT 13.5 x10^3/uL (4.8-10.8)
--- NOTE | 2018-05-15 07:25 | Discharge Plan ---
Discharge Plan Disposition: Home, Self Care Condition: Good Prescriptions: Amox/Clav 875/125 [Augmentin] 1 each PO Q12H #6 tablet Saccharomyces Boulardii [Florastor] 250 mg PO BID #60 capsule Diet: Cardiac (low fat) Activity Restrictions: Activity as Tolerated Shower Restrictions: No Driving Restrictions: Yes (No driving, for at least 3 more days please) Weight Bearing: Full Weight Additional Instructions or Follow Up instructions: You were admitted for cholecystitis and underwent an exploratory surgery to remove the gall bladder. An echocardiogram was completed and results are pending. Please do not lift anything greater than a gallon of milk. Please see the GI surgeon in the next 1 week. Please take 3 days of Augmentin 875 twice per day. Avoid fatty foods. Your body will need some time to adjust to this change. See your PCP within one week. No Smoking: If you smoke, Please STOP! Call for help. Follow-up with: Radha Gorman MD [Primary Care Provider] -
[2018-05-15 07:26] LABS: ALBUMIN 3.1 g/dL (3.2-5.5); ALBUMIN/GLOBULIN RATIO 1.1 (1.0-2.2); BILIRUBIN,TOTAL 0.5 mg/dL (0.2-1.0); CALCIUM 8.6 mg/dL (8.5-10.3); CREATININE 0.8 mg/dL (0.6-1.2)
[2018-05-15] MEDS: IPRATROPIUM/ALBUTEROL 3 ML NEB INH PRN (08:01)
[2018-05-15] MEDS: BUDESONIDE 0.5 MG/2 ML NEB INH SCH (08:01)
[2018-05-15] MEDS: POLYETHYLENE GLYCOL 3350 17 GM PACKET PO SCH (08:56)
[2018-05-15] MEDS: FLUTICASONE NASAL SPRAY NAS SCH (08:56)
[2018-05-15 09:08] LABS: PLATELET ESTIMATE, MANUAL NORMAL (130-450,000) (NORMAL); PLATELET MORPHOLOGY NORMAL APPEARANCE (NORMAL); RBC MORPHOLOGY (MULTIPLE) NORMAL APPEARANCE (NORMAL)
--- NOTE | 2018-05-15 09:08 | PROVIDER PROGRESS NOTE ---
Subjective - General Admit Date: 05/14/18 Procedure Date: 05/14/18 Post Op Days: 1 Procedure Performed: Lap Reynaldo with IOC - Review of Systems Wound/Incisions: positive: Healing well, No drainage General: positive: No symptoms Pulmonary: positive: No symptoms Cardiovascular: positive: No symptoms Gastrointestinal: positive: Abdominal pain (mild incisional discomfort) Genitourinary: positive: No symptoms - Other Other Information/Narrative: Feels well; minimal incisional discomfort, tolerating a regular diet, voiding well. Objective - Patient Data Reviewed Vital Signs: Yes Vital Signs: Vital Signs x48h Temp Pulse Pulse Resp BP Pulse Ox 05/15/18 08:05 88 19 05/15/18 07:52 37.1 C 72 16 128/81 H 95 05/15/18 06:00 36.4 C L 80 18 130/72 97 Weight: Weight 05/13/18 05/14/18 05/15/18 23:59 23:59 23:59 Weight (kg) 86.5 kg 86.3 kg Intake & Output: Intake and Output Totals x24h 05/13/18 05/14/18 05/15/18 23:59 23:59 23:59 Intake Total 3840.00 1381.25 Output Total 400 1650 Balance 3440.00 -268.75 - Lab Results Lab Results: 05/15/18 06:43 05/15/18 06:43 Other Lab Results: Lab Results x24hrs 05/15/18 05/15/18 05/14/18 Range/Units 06:43 06:43 17:51 WBC 13.5 H 12.9 H (4.8-10.8) x10^3/uL RBC 3.91 L 4.30 L (4.70-6.10) 10^6/uL Hgb 12.0 L 12.7 L (14.0-18.0) g/dL Hct 36.0 L 39.4 L (42.0-52.0) % MCV 92.1 91.6 (80.0-94.0) fL MCH 30.8 29.6 (27.0-31.0) pg MCHC 33.5 32.3 (32.0-36.0) g/dL RDW 13.8 13.9 (12.0-15.0) % Plt Count 313 337 (130-450) 10^3/uL MPV 6.3 L 5.9 L (7.4-11.4) fL Neut # (Auto) 9.5 H 11.3 H (1.5-6.6) 10^3/uL Lymph # (Auto) 1.9 0.9 L (1.5-3.5) 10^3/uL Boyd # (Auto) 1.7 H 0.5 (0.0-1.0) 10^3/uL Eos # (Auto) 0.3 0.0 (0.0-0.7) 10^3/uL Baso # (Auto) 0.0 0.1 (0.0-0.1) 10^3/uL Absolute Nucleated RBC 0.00 0.00 x10^3/uL Nucleated RBC % 0.0 0.0 /100WBC Manual Slide Review Indicated Sodium 141 (135-145) mmol/L Potassium 3.6 (3.5-5.0) mmol/L Chloride 107 (101-111) mmol/L Carbon Dioxide 28 (21-32) mmol/L Anion Gap 6.0 (6-13) BUN 12 (6-20) mg/dL Creatinine 0.8 (0.6-1.2) mg/dL Estimated GFR (MDRD) 97 (>89) Glucose 111 H (70-100) mg/dL Calcium 8.6 (8.5-10.3) mg/dL Total Bilirubin 0.5 (0.2-1.0) mg/dL AST 36 (10-42) IU/L ALT 32 (10-60) IU/L Alkaline Phosphatase 49 (42-121) IU/L Total Protein 6.0 L (6.7-8.2) g/dL Albumin 3.1 L (3.2-5.5) g/dL Globulin 2.9 (2.1-4.2) g/dL Albumin/Globulin Ratio 1.1 (1.0-2.2) - Imaging Results Radiology Imaging: positive: Final report received, EMP read indepedently Imaging Results Comments: [facility] nl - Current Medications Current Medications: Current Medications Generic Name Dose Route Start Last Admin Trade Name Freq PRN Reason Stop Dose Admin Albuterol/Ipratropium 3 ml 05/14/18 09:13 05/15/18 08:01 Duoneb INH 3 ml Q4HR PRN Administration Wheezing Budesonide 0.5 mg 05/14/18 15:00 05/15/18 08:01 Pulmicort INH 0.5 mg RTBID KSENIA Administration Fluticasone Propionate 1 sprays 05/14/18 15:00 05/15/18 08:56 Flonase MAIKEL Not Given DAILY KSENIA Lactated Ringer's 1,000 mls @ 75 mls/hr 05/14/18 14:00 05/15/18 08:57 Lr IV 0 mls/hr .[id number] KSENIA Infusion Acetaminophen 100 mls @ 400 mls/hr 05/14/18 14:00 05/15/18 08:49 Ofirmev IV 400 mls/hr Q6H KSENIA Administration Piperacillin Sod/Tazobactam 100 mls @ 200 mls/hr 05/14/18 14:00 05/15/18 06: 03 Sod 3.375 gm/ Sodium Chloride IV 200 mls/hr Q6HR KSENIA Administration Pantoprazole Sodium 40 mg 05/15/18 07:00 05/15/18 06:04 Protonix PO 40 mg QDAC KSENIA Administration Polyethylene Glycol 17 gm 05/14/18 09:00 05/15/18 08:56 Miralax PO Not Given DAILY [facility] Sodium Chloride 10 ml 05/14/18 09:00 05/15/18 08:57 Normal Saline Flush 0.9% IVP Not Given 0100,0900,1700 [facility] Sodium Chloride 10 ml 05/14/18 17:00 05/15/18 08:57 Normal Saline Flush 0.9% IVP Not Given 0100,0900,1700 [facility] - Physical Exam Wound/Incisions: positive: Healing well, No drainage General Appearance: positive: No acute distress, Alert Eyes Bilateral: positive: Conjunctivae nml, No scleral icterus Respiratory: positive: Chest non-tender, No respiratory distress, Wheezes ( faint exp wheeze) Cardiovascular: positive: Regular rate & rhythm, No murmur, No gallop Abdomen: positive: Nml bowel sounds, Tenderness (minimal expected postop tenderness). negative: Guarding, Rebound ABX Reporting Has patient been on IV antibiotics over the past 48 hours?: No Impression/Plan - Problem List Problem List: Acute acalculous cholecystitis, clinically doing well PO day #1 s/p lap reynaldo with IOC. Rec: OK for d/c home with 3 days of Augmentin 875 BID; outpt f/u my office in 1 week; usual precautions.
--- NOTE | 2018-05-15 09:15 | DISCHARGE SUMMARY ---
"Discharge Summary Admit Date: 05/14/18 Discharge Date: 05/15/18 Discharging Provider: DEVI Thakkar Primary Care Provider: Gavi Oden Code Status: Attempt Resuscitation Condition at Discharge: Good Discharge Disposition: 01 Home, Self Care - DIAGNOSES Admission Diagnoses: Acute cholecystitis (K81.0) Hyperlipidemia, unspecified (E78.5) Major depressive disorder, single episode, unspecified (F32.9) Gastro-esophageal reflux disease without esophagitis (K21.9) Enlarged prostate without lower urinary tract symptoms (N40.0) Discharge Diagnoses with Status of Each Condition: Cholecystitis, acute (K81.0) resolved post op. Hyperlipidemia (E78.5) chronic, stable. Depression (F32.9) chronic, stable. GERD (gastroesophageal reflux disease) (K21.9) chronic, stable. BPH (benign prostatic hyperplasia) (N40.0) chronic, stable. Post-operative state (Z98.890) ongoing, stable. JACKIE (obstructive sleep apnea) (G47.33) chronic, stable. Echo is pending. Chronic sinusitis (J32.9) chronic, prescribed nasal sprays. - HPI History of Present Illness: Estrada Salvador is a 67-year old male with a past medical history of BPH, JCAKIE-uses a nasal CPAP, hyperlipidemia, asthma, chronic sinusitis, depression and GERD. He was in his usual state of health when he began having extreme abdominal pain that was sharp, dull and cramping in his RLQ and started yesterday at 12 noon. He does not admit to anything out of the ordinary in his diet prior to this, and this has never happened before. This pain continued, but varied in intensity and was accompanied with nausea and emesis. He went to bed and was awoke by this agonizing, crippling pain that was much worse, so he and his called 911. Once in the ED, he had imaging that showed likely cholecystitis. He denied shortness of breath, chest pain, diarrhea, bleeding, dizziness, recent illness, fever, chills or headache. Lab results show an elevated WBC of 18.5, low sodium of 131, negative troponin and no other lab abnormalities. General surgery was consulted and hospitalist will admit to observation for management of his other chronic medical conditions. - CONSULTS | PROCEDURES Consultations: General surgery, Garth Maciel - HOSPITAL COURSE Hospital Course: The following diagnoses were prevalent during this hospital stay: (1) Cholecystitis The patient was brought to the ED via ambulance as he had crippling pain in his right lower abdomen. Upon imaging, the gall bladder is noted to be distended, with mild wall thickening, and adjacent inflammatory fat stranding. Also, the common bile duct was dilated at [address] Cirilo Maciel was consulted and the patient underwent a laproscopic surgery for removal of the gall bladder. The patient was examined preoperatively and the Hospitalist team proposed this conclusion: Using the revised cardiac risk index for pre- operative risk this patient is 0.04%. The patient suffered no ill effects in his post operative course and was discharged the next day. He remained with a normal tenderness to all laproscopic sites that were open to air, without drainage, erythema or increased pain. (2) Abdominal pain The patient started having abdominal pain at 12 noon the day prior to admission , which continued, and eventually woke him up in the night. He described the pain as cramping, aching, dull, and sharp and pointed to RLQ as the location. He was given IV morphine and tylenol. Imaging confirmed a likely acute cholecystitis, so he was taken to surgery. The patient no longer had the abdominal pain, and this condition is considered resolved. (3) Hyperlipidemia The patient denies prior AL or strokes. He is prescribed Zetia and a statin at home, which was briefly on hold and resumed upon discharge. He denied daily exercise, but believes his diet is healthy. Post operatively, he was given instruction to avoid fatty foods, and follow up with general surgery. (4) JACKIE (obstructive sleep apnea) The patient believes he was first diagnosed with this about 5 years ago and sees a visual presentation manager in the [facility]. He uses a nasal device nightly. He is found to have a R BBB on EKG which can be seen with right heart strain. An Echo was obtained without any significant findings. He claimed to be compliant with nightly home CPAP use. (5) Asthma The patient is prescribed a LABA at home and was seen by his PCP within the last month for this. He denies recent pneumonia or increased SOB. Wheezing was appreciated both posterior and anterior chest through out his stay. He denies chronic steroid nasal spray or daily nasal cleanse. He was prescribed Flonase, and recommend chronic use. Disposition: The patient was anxious to return home with his and was discharged with follow ups. He was given a 3 day course of oral antibiotics as per general surgery. He was ambulatory and required no oxygen. - ALLERGIES Allergies/Adverse Reactions: Allergies Allergy/AdvReac Type Severity Reaction Status Date / Time No Known Drug Allergies Allergy Verified 05/14/18 05:02 - MEDICATIONS Home Medications: Ambulatory Orders Medication Instructions Recorded Confirmed Buspirone HCl 15 mg PO DAILY 06/25/13 05/14/18 Sertraline HCl [Zoloft] 100 mg PO DAILY 06/25/13 05/14/18 Simvastatin [Zocor] 40 mg PO QPM 06/25/13 05/14/18 lamoTRIgine [Lamotrigine] 200 mg PO BID 06/25/13 05/14/18 Ezetimibe [Zetia] 10 mg PO QD 06/26/13 05/14/18 Omeprazole [PriLOSEC] 20 mg PO BIDAC 06/26/13 05/14/18 Tamsulosin [Flomax] 0.4 mg PO DAILY 06/26/13 05/14/18 Fexofenadine HCl 180 mg PO DAILY 05/14/18 05/14/18 Fluticasone/Salmeterol [Advair 1 puffs INH BID 05/14/18 05/14/18 500-50 Diskus] Liothyronine [Cytomel] 15 mcg PO DAILY 05/14/18 05/14/18 Meloxicam 15 mg PO DAILY 05/14/18 05/14/18 Tiotropium [place] [Spiriva 2 puffs INH DAILY 05/14/18 05/14/18 Respimat] Amox/Clav 875/125 [Augmentin] 1 each PO Q12H #6 tablet 05/15/18 Saccharomyces Boulardii [Florastor] 250 mg PO BID #60 capsule 05/15/18 - PHYSICAL EXAM AT DISCHARGE General Appearance: positive: No acute distress, Alert Eyes Bilateral: positive: Normal inspection, PERRL ENT: positive: ENT inspection nml, Pharynx nml, No signs of dehydration Neck: positive: Nml inspection, Thyroid nml, No JVD, Trachea midline Respiratory: positive: Chest non-tender, No respiratory distress, Wheezes, Other (diminished.) Cardiovascular: positive: Regular rate & rhythm, Systolic murmur Peripheral Pulses: positive: 2+ Abdomen: positive: Nml bowel sounds, Tenderness, Guarding, Other (surgical sites without drainage or redness, no signs of post-op bleeding or complications.) Back: positive: Nml inspection Skin: positive: Color nml, No rash, Warm, Dry Extremities: positive: Non-tender, Full ROM, Nml appearance Neurologic/Psychiatric: positive: Oriented x3, CN's nml (2-12), Motor nml, Sensation nml, Mood/affect nml Reflexes: Bicep (R): 4+, Bicep (L): 4+, Ankle (R): 4+, Ankle (L): 4+ - LABS Result Diagrams: 05/15/18 06:43 05/15/18 06:43 - FOLLOW UP Follow Up: Disposition: 01 Home, Self Care Condition: Good Prescriptions: Amox/Clav 875/125 [Augmentin] 1 each PO Q12H #6 tablet Saccharomyces Boulardii [Florastor] 250 mg PO BID #60 capsule Diet: Cardiac (low fat) Activity Restrictions: Activity as Tolerated Shower Restrictions: No Driving Restrictions: Yes (No driving, for at least 3 more days please) Weight Bearing: Full Weight Additional Instructions or Follow Up instructions: You were admitted for cholecystitis and underwent an exploratory surgery to remove the gall bladder. An echocardiogram was completed and results are pending. Please do not lift anything greater than a gallon of milk. Please see the GI surgeon in the next 1 week. Please take 3 days of Augmentin 875 twice per day. Avoid fatty foods. Your body will need some time to adjust to this change. See your PCP within one week. - TIME SPENT Time Spent in Discharge (Minutes): 40"
[2018-05-15 11:03] VITALS: BP 126/79
== END 2018-05-15 11:56 | disposition home or self-care (01) ==
LOC: EDUNIT# → ED 04:56 → MS3 07:18 → INTOOBSV 07:18 → OBS 12:11
PROVIDERS: ADMIT Nurse Practitioner; ATTEND Nurse Practitioner
PROC: 0FT44ZZ Resection of Gallbladder, Percutaneous Endoscopic Approach (ICD-10-PCS; principal; 2018-05-14 10:30)
DX: K80.12 Calculus of gallbladder with acute and chronic cholecystitis without obstruction (principal); K82.8 Other specified diseases of gallbladder; K83.8 Other specified diseases of biliary tract; E78.5 Hyperlipidemia, unspecified; K21.9 Gastro-esophageal reflux disease without esophagitis; F32.9 Major depressive disorder, single episode, unspecified; N40.1 Benign prostatic hyperplasia with lower urinary tract symptoms; R35.1 Nocturia; J45.40 Moderate persistent asthma, uncomplicated; F41.9 Anxiety disorder, unspecified; G47.33 Obstructive sleep apnea (adult) (pediatric); J32.9 Chronic sinusitis, unspecified; I45.10 Unspecified right bundle-branch block; Z79.899 Other long term (current) drug therapy; Z79.51 Long term (current) use of inhaled steroids
CPT/HCPCS: 36415; 47563; 71046; 74177; 74300; 80053; 81003; 83605; 83690; 84484; 85025; 88304; 93005; 93306; 94640; 96361; 96365; 96375; 99284; 99285; A9270; J0131; J7120; J7626; Q9961; Q9967; 81001; 87086

== ENCOUNTER 2019-10-18 09:24 | Outpatient (CLI) | payer MEDICARE, OTHER ==
--- NOTE | 2019-10-19 00:04 | XRAY Report ---
Reason: COPD EXAC, RIGHT SIDED CONSOLIDATION ON EXAM SOB Procedure Date: 10/18/2019 Accession Number: [id number] / [id number] Procedure: XRS - Chest 2 View X-Ray CPT Code: 44275 Final Report FULL RESULT: EXAM: CHEST RADIOGRAPHY EXAM DATE: 10/18/2019 09:37 AM. CLINICAL HISTORY: COPD EXAC, RIGHT SIDED CONSOLIDATION ON EXAM SOB. Shortness of breath. COMPARISON: CHEST 2 VIEW 05/14/2018 9:28 AM. TECHNIQUE: 2 views. FINDINGS: Lungs/Pleura: No consolidation, airspace disease, pleural effusion or pneumothorax. Mediastinum: Heart and mediastinal contours are unremarkable. IMPRESSION: No acute cardiopulmonary disease seen. RADIA
== END 2019-10-18 09:25 | disposition home or self-care (01) ==
LOC: DI.S 09:24
PROVIDERS: ATTEND Family Medicine
DX: J44.1 Chronic obstructive pulmonary disease with (acute) exacerbation (principal)
CPT/HCPCS: 71046

== ENCOUNTER 2020-05-28 10:27 | Outpatient (CLI) | payer MEDICARE, OTHER | END 2020-05-28 10:28 | disposition home or self-care (01) | LOC: COV 10:27 | PROVIDERS: ATTEND Family Medicine | DX: J02.9 Acute pharyngitis, unspecified (principal); Z20.828 Contact with and (suspected) exposure to other viral communicable diseases ==

== ENCOUNTER 2020-09-15 12:15 | Outpatient (CLI) | payer MEDICARE, OTHER | END 2020-09-15 12:16 | disposition home or self-care (01) | LOC: COV 12:15 | PROVIDERS: ATTEND Family Medicine | DX: R05 Cough (principal); Z20.828 Contact with and (suspected) exposure to other viral communicable diseases; R06.02 Shortness of breath; R53.83 Other fatigue; R09.81 Nasal congestion; J02.9 Acute pharyngitis, unspecified; M79.10 Myalgia, unspecified site ==

== ENCOUNTER 2021-03-02 16:00 | Emergency (ER) | payer MEDICARE, BC ==
--- NOTE | 2021-03-02 16:41 | ED Physician Documentation ---
PD HPI HEADACHE - Stated complaint Stated Complaint: DIZZINESS - Chief complaint Chief Complaint: Trauma Hd/Nk - History obtained from History obtained from: Patient - Additional information Additional information: Walking his dog 3 nights ago and tripped over a rock and fell forward. He did hit his forehead on the ground. He felt fine then but starting the next day, 2 days ago developed head pressure and some clumsiness and dizziness. He is not anticoagulated. No severe headache. No history of brain problem such as seizure, syncope, stroke. Review of Systems Constitutional: reports: Reviewed and negative Throat: reports: Reviewed and negative Cardiac: reports: Reviewed and negative Respiratory: reports: Reviewed and negative PD PAST MEDICAL HISTORY - Past Medical History Cardiovascular: None, High cholesterol Respiratory: None Neuro: Headaches Endocrine/Autoimmune: None GI: GERD BEAUTY ARTIST: None : None HEENT: Chronic sinusitis Psych: Depression Musculoskeletal: None Derm: None - Past Surgical History General: Colonoscopy HEENT: Tonsil/Adenoidectomy - Present Medications Home Medications: Ambulatory Orders Medication Instructions Recorded Confirmed Buspirone HCl 15 mg PO DAILY 06/25/13 03/02/21 Sertraline HCl [Zoloft] 100 mg PO DAILY 06/25/13 03/02/21 Simvastatin [Zocor] 40 mg PO QPM 06/25/13 03/02/21 lamoTRIgine [Lamotrigine] 200 mg PO BID 06/25/13 03/02/21 Ezetimibe [Zetia] 10 mg PO QD 06/26/13 03/02/21 Omeprazole [PriLOSEC] 20 mg PO BIDAC 06/26/13 03/02/21 Tamsulosin [Flomax] 0.4 mg PO DAILY 06/26/13 03/02/21 Fexofenadine HCl 180 mg PO DAILY 05/14/18 03/02/21 Fluticasone/Salmeterol [Advair 1 puffs INH BID 05/14/18 03/02/21 500-50 Diskus] Liothyronine [Cytomel] 15 mcg PO DAILY 05/14/18 03/02/21 Meloxicam 15 mg PO DAILY 05/14/18 03/02/21 Tiotropium [place] [Spiriva 2 puffs INH DAILY 05/14/18 03/02/21 Respimat] - Allergies Allergies/Adverse Reactions: Allergies Allergy/AdvReac Type Severity Reaction Status Date / Time No Known Drug Allergies Allergy Verified 03/02/21 16:03 - Social History Does the pt smoke?: No Smoking Status: Never smoker Does the pt drink ETOH?: Yes - Immunizations Immunizations are current?: Yes - POLST Patient has POLST: Yes POLST Status: Full Code PD ED PE NORMAL - Vitals Vital signs reviewed: Yes - General General: Alert and oriented X 3, No acute distress - HEENT HEENT: PERRL, EOMI - Neck Neck: Supple, no meningeal sign, No bony TTP - Cardiac Cardiac: RRR, No murmur - Respiratory Respiratory: No respiratory distress, Clear bilaterally - Abdomen Abdomen: Non tender - Extremities Extremities: No deformity, No tenderness to palpate, Normal ROM s pain, No edema, No calf tenderness / cord - Neuro Neuro: Alert and oriented X 3, configurator 2-12 intact, No motor deficit, No sensory deficit, Normal speech, Other (Normal owtytu-pe-tvoa and zrpu-xx-brrv testing) Eye Opening: Spontaneous Motor: Obeys Commands Verbal: Oriented GCS Score: 15 - Psych Psych: Normal mood, Normal affect Results - Vitals Vitals: Vital Signs - 24 hr 03/02/21 03/02/21 16:03 17:22 Temperature 36.5 C 37 C Heart Rate 100 92 Respiratory 16 16 Rate Blood Pressure 130/83 H 121/97 H O2 Saturation 96 95 Oxygen O2 Source Room air - Rads (name of study) CT scan of the head Radiology: EMP read contemporaneously (No Acute findings except for pansinusitis. He is taking [id number]'s for this.) PD MEDICAL DECISION MAKING - ED course ED course: 70-year-old gentleman presents with clumsiness and dizziness after minor head injury. Differential diagnosis includes subdural hemorrhage, other intracranial hemorrhage, postconcussive syndrome. CT of the head was done ruling out the first 2. Departure - Departure Disposition: 01 Home, Self Care Clinical Impression: Post concussion syndrome Condition: Good Record reviewed to determine appropriate education?: Yes Instructions: ED Concussion Comments: CT scan was normal, no evidence of subdural hemorrhage or other worrisome findings. Your symptoms should resolve with time, be careful Well still symptomatic, be wary of ladders and driving should she get dizzy. Return if worsening. Follow-up with your primary care physician. Continue [id number]-xpa-qqbburp remedies for allergic sinusitis. Discharge Date/Time: 03/02/21 17:22
--- NOTE | 2021-03-02 17:08 | CT Report ---
PROCEDURE: HEAD WO INDICATIONS: head inj TECHNIQUE: Noncontrast 4.5 mm thick angled axial sections acquired from the foramen magnum to the vertex. For r adiation dose reduction, the following was used: automated exposure control, adjustment of mA and/or kV according to patient size. COMPARISON: 09/12/2013. FINDINGS: Image quality: Excellent. CSF spaces: Basal cisterns are patent. No extra-axial fluid collections. Ventricles are normal in size and shape. Brain: No midline shift. No intracranial masses or hemorrhage. Davis-white matter interface is norm al. Skull and face: Calvarium and visualized facial bones are intact, without suspicious lesions. Sinuses: Visualized mastoids are clear. Pansinus disease most pronounced in the ethmoid and left ma xillary sinus. There is near complete opacification of the left maxillary sinus. No associated osseou s destruction. IMPRESSION: 1. CT head without acute intracranial abnormalities or acute calvarial fractures. 2. Pansinusitis. Reviewed by: Bandar Rivera MD on 03/02/2021 4:07 PM JULIA Approved by: Bandar Rivera MD on 03/02/2021 4:07 PM JULIA Station ID: [id number]
[2021-03-02 17:22] VITALS: BP 121/97
== END 2021-03-02 17:22 | disposition home or self-care (01) ==
LOC: ED 16:00
DX: F07.81 Postconcussional syndrome (principal); W01.0XXD Fall on same level from slipping, tripping and stumbling without subsequent striking against object, subsequent encounter; J32.4 Chronic pansinusitis; F32.9 Major depressive disorder, single episode, unspecified; Z79.899 Other long term (current) drug therapy
CPT/HCPCS: 99282; 99284

== ENCOUNTER 2021-07-13 13:32 | Outpatient (CLI) | payer MEDICARE, BC | END 2021-07-13 13:33 | disposition home or self-care (01) | LOC: COV 13:32 | PROVIDERS: ATTEND Family Medicine | DX: R05 Cough (principal); M79.10 Myalgia, unspecified site; R53.83 Other fatigue; R07.0 Pain in throat; R09.81 Nasal congestion; Z20.822 Contact with and (suspected) exposure to COVID-19 ==

== ENCOUNTER 2022-03-11 11:04 | Outpatient (CLI) | payer MEDICARE, BC ==
[2022-03-11 14:53] LABS: BASOPHILS # (AUTO) 0.1 10^3/uL (0.0-0.1); BASOPHILS % (AUTO) 1.6 %; EOSINOPHILS # (AUTO) 1.2 10^3/uL (0.0-0.7); EOSINOPHILS % (AUTO) 13.4 %; HCT - HEMATOCRIT 42.9 % (42.0-52.0); HGB - HEMOGLOBIN 14.4 g/dL (14.0-18.0); LYMPHOCYTES # (AUTO) 1.8 10^3/uL (1.5-3.5); MEAN CORPUSCULAR HEMOGLOBIN 29.6 pg (27.0-31.0); MEAN CORPUSCULAR HGB CONC 33.6 g/dL (32.0-36.0); MEAN CORPUSCULAR VOLUME 88.3 fL (80.0-94.0); MEAN PLATELET VOLUME 7.9 fL (7.4-11.4); MONOCYTES % (AUTO) 11.1 %; NEUTROPHILS # (AUTO) 4.5 10^3/uL (1.5-6.6); NEUTROPHILS % (AUTO) 52.7 %; PLT - PLATELET COUNT 401 10^3/uL (130-450); RED BLOOD COUNT 4.86 10^6/uL (4.70-6.10); RED CELL DISTRIBUTION WIDTH 13.4 % (12.0-15.0); WHITE BLOOD COUNT 8.6 x10^3/uL (4.8-10.8)
[2022-03-11 14:55] LABS: RBC MORPHOLOGY (MULTIPLE) 2+ ANISOCYTOSIS (NORMAL); SLIDE REVIEW? Indicated
--- NOTE | 2022-03-11 15:35 | XRAY Report ---
PROCEDURE: Chest 2 View X-Ray INDICATIONS: CHRONIC COUGH TECHNIQUE: 2 view(s) of the chest. COMPARISON: 10/18/2019 and 05/14/2018. FINDINGS: Surgical changes and devices: None. Lungs and pleura: No pleural effusions or pneumothorax. Lungs are clear. Mediastinum: Mediastinal contours are normal. Heart size is normal. Bones and chest wall: No suspicious bony abnormalities. Soft tissues appear unremarkable. IMPRESSION: No acute cardiopulmonary disease process. Reviewed by: Ladi Calloway MD, PhD on 03/11/2022 3:34 PM PDT Approved by: Ladi Calloway MD, PhD on 03/11/2022 3:34 PM PDT Station ID: [id number]
[2022-03-11 15:44] LABS: ALBUMIN 4.1 g/dL (3.2-5.5); ALBUMIN/GLOBULIN RATIO 1.5 (1.0-2.2); ALKALINE PHOSPHATASE 58 IU/L (42-121); ALT ALANINE AMINOTRANSFERASE 31 IU/L (10-60); AST ASPARTATE AMINOTRANSFERASE 29 IU/L (10-42); BILIRUBIN,TOTAL 1.1 mg/dL (0.2-1.0); BUN - BLOOD UREA NITROGEN 15 mg/dL (6-20); CALCIUM 9.8 mg/dL (8.5-10.3); CARBON DIOXIDE - CO2 27 mmol/L (21-32); CHLORIDE 98 mmol/L (101-111); CHOL/HDL RATIO 3.8 (<5.0); CHOLESTEROL 220 mg/dL; CREATININE 0.8 mg/dL (0.6-1.2); CRP HIGH SENSITIVITY 3.3 mg/L; GFR - MDRD 96 (>89); GLUCOSE 93 mg/dL (70-100); HDL CHOLESTEROL 58 mg/dL; LDL CHOLESTEROL,CALCULATED 132 mg/dL; LDL/HDL RATIO 2.3 (<3.6); POTASSIUM 4.1 mmol/L (3.5-5.0); PSA FREE 0.39 ng/mL (0.16-2.81); SODIUM 137 mmol/L (135-145); TOTAL PROTEIN 6.8 g/dL (6.7-8.2); TRIGLYCERIDES 151 mg/dL; VLDL CHOLESTEROL 30 mg/dL
[2022-03-11 15:45] LABS: PSA TOTAL 3.08 ng/mL (0.000-2.000)
[2022-03-11 15:51] LABS: THYROID STIMULATING HORMONE 1.14 uIU/mL (0.34-5.60)
[2022-03-11 15:52] LABS: FREE T3 3.41 pg/mL (2.5-3.9)
[2022-03-11 15:55] LABS: FREE T4 (FREE THYROXINE) 0.47 ng/dL (0.58-1.64)
[2022-03-11 21:24] LABS: ESTIMATED AVERAGE GLUCOSE 120 mg/dL (70-100); HEMOGLOBIN A1c% 5.8 % (4.27-6.07)
[2022-03-12 02:08] LABS: HOMOCYST(E)INE 9.5 umol/L (0.0-17.2)
[2022-03-19 02:08] LABS: REVERSE T3 SERUM 10.3 ng/dL (9.2-24.1)
== END 2022-03-11 11:05 | disposition home or self-care (01) ==
LOC: DI.S 11:04
PROVIDERS: ATTEND Family Medicine
DX: R06.09 Other forms of dyspnea (principal); R05.3 Chronic cough; E03.9 Hypothyroidism, unspecified; E78.5 Hyperlipidemia, unspecified; R73.09 Other abnormal glucose; E55.9 Vitamin D deficiency, unspecified; N40.1 Benign prostatic hyperplasia with lower urinary tract symptoms; R53.83 Other fatigue
CPT/HCPCS: 36415; 80053; 80061; 82306; 82626; 83036; 83090; 83721; 84153; 84154; 84439; 84443; 84480; 84481; 84482; 85025; 86141

== ENCOUNTER 2023-01-25 09:51 | Outpatient (CLI) | payer MEDICARE, BC ==
[2023-01-25 14:44] LABS: BASOPHILS # (AUTO) 0.1 10^3/uL (0.0-0.1); EOSINOPHILS # (AUTO) 0.4 10^3/uL (0.0-0.7); EOSINOPHILS % (AUTO) 4.1 %; HCT - HEMATOCRIT 43.2 % (42.0-52.0); HGB - HEMOGLOBIN 13.7 g/dL (14.0-18.0); LYMPHOCYTES # (AUTO) 1.2 10^3/uL (1.5-3.5); LYMPHOCYTES % (AUTO) 12.4 %; MEAN CORPUSCULAR HGB CONC 31.7 g/dL (32.0-36.0); MEAN CORPUSCULAR VOLUME 88.3 fL (80.0-94.0); MEAN PLATELET VOLUME 8.2 fL (7.4-11.4); MONOCYTES # (AUTO) 0.7 10^3/uL (0.0-1.0); MONOCYTES % (AUTO) 7.5 %; NEUTROPHILS # (AUTO) 7.1 10^3/uL (1.5-6.6); NEUTROPHILS % (AUTO) 74.6 %; PLT - PLATELET COUNT 426 10^3/uL (130-450); RED BLOOD COUNT 4.89 10^6/uL (4.70-6.10); RED CELL DISTRIBUTION WIDTH 14.7 % (12.0-15.0); WHITE BLOOD COUNT 9.5 x10^3/uL (4.8-10.8)
[2023-01-25 15:02] LABS: ESTIMATED AVERAGE GLUCOSE 126 mg/dL (70-100)
[2023-01-25 15:34] LABS: ALBUMIN/GLOBULIN RATIO 1.4 (1.0-2.2); BILIRUBIN,TOTAL 0.6 mg/dL (0.2-1.0); CALCIUM 9.4 mg/dL (8.5-10.3); CREATININE 0.7 mg/dL (0.6-1.2); CRP HIGH SENSITIVITY 1.5 mg/L; POTASSIUM 3.6 mmol/L (3.5-5.0); TOTAL PROTEIN 6.8 g/dL (6.7-8.2)
[2023-01-25 15:44] LABS: THYROID STIMULATING HORMONE 1.43 uIU/mL (0.34-5.60)
[2023-01-25 15:46] LABS: FREE T3 2.94 pg/mL (2.5-3.9); FREE T4 (FREE THYROXINE) 0.61 ng/dL (0.58-1.64)
[2023-01-25 15:51] LABS: FERRITIN 15.7 ng/mL (23.9-336.2)
[2023-01-26 04:08] LABS: VITAMIN D 25-HYDROXY 52.7 ng/mL (30.0-100.0)
[2023-02-03 00:08] LABS: REVERSE T3 SERUM <5.0 ng/dL (.)
== END 2023-01-25 09:52 | disposition home or self-care (01) ==
LOC: LAB.S 09:51
PROVIDERS: ATTEND Family Medicine
DX: E78.5 Hyperlipidemia, unspecified (principal); R73.09 Other abnormal glucose; R53.83 Other fatigue; E03.9 Hypothyroidism, unspecified; D64.9 Anemia, unspecified; I45.10 Unspecified right bundle-branch block; E55.9 Vitamin D deficiency, unspecified
CPT/HCPCS: 36415; 80053; 81599; 82306; 82626; 82728; 83036; 83088; 83090; 84439; 84443; 84480; 84481; 84482; 85025; 86141

== ENCOUNTER 2023-03-04 10:01 | Outpatient (CLI) | payer MEDICARE, BC ==
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
== END 2023-03-04 10:02 | disposition home or self-care (01) ==
LOC: DI.S 10:01
PROVIDERS: ATTEND Family Medicine
DX: M19.072 Primary osteoarthritis, left ankle and foot (principal)

== ENCOUNTER 2023-09-13 13:07 | Outpatient (CLI) | payer MEDICARE, BC ==
--- NOTE | 2023-09-13 15:29 | XRAY Report ---
PROCEDURE: Lumbar Spine 2 View INDICATIONS: 8 WKS LBPS/P INJURY TECHNIQUE: 3 views of the lumbar spine were acquired. COMPARISON: None. FINDINGS: Bones: 5 gan-xhn-wdyahlg vertebrae are present. There is trace anterolisthesis of L4 on L5, trace r etrolisthesis of L5 on S1. Severe disc and foraminal narrowing are present at L5-S1, mild to moderate L4-5. No vertebral body compression fractures. No suspicious bony lesions. Soft tissues: Overlying bowel gas pattern is normal. No suspicious soft tissue calcifications. IMPRESSION: Degenerative changes most notable at L5-S1. Reviewed by: Ciara Schmidt MD on 09/13/2023 3:28 PM PDT Approved by: Ciara Schmidt MD on 09/13/2023 3:28 PM PDT Station ID: [id number]
== END 2023-09-13 13:08 | disposition home or self-care (01) ==
LOC: DI.S 13:07
PROVIDERS: ATTEND Family Medicine
DX: M47.817 Spondylosis without myelopathy or radiculopathy, lumbosacral region (principal); M47.816 Spondylosis without myelopathy or radiculopathy, lumbar region

== ENCOUNTER 2023-12-14 13:10 | Outpatient (CLI) | payer MEDICARE, BC ==
--- NOTE | 2023-12-14 14:31 | XRAY Report ---
PROCEDURE: Hips w/Pelvis 2-3V BL INDICATIONS: ACUTE NONTRAMATIC LEFT HIP PAIN TECHNIQUE: 2 view(s) of each hip were acquired. COMPARISON: None FINDINGS: Bones: No fractures or dislocations. Minimal spurring at the left superior acetabulum. Mildly decrea sed femoral acetabular joint space bilaterally and symmetrically. No suspicious bony lesions. The vi sualized pelvic ring appears intact. Soft tissues: No suspicious soft tissue calcifications or masses. IMPRESSION: Minimal left hip joint degeneration. Reviewed by: Marcie Lucio MD on 12/14/2023 2:30 PM PST Approved by: Marcie Lucio MD on 12/14/2023 2:30 PM PST Station ID: [id number]
== END 2023-12-14 13:11 | disposition home or self-care (01) ==
LOC: DI.S 13:10
PROVIDERS: ATTEND Family Medicine
DX: M16.12 Unilateral primary osteoarthritis, left hip (principal)

== ENCOUNTER 2024-01-31 18:20 | Outpatient (CLI) | payer MEDICARE, BC ==
--- NOTE | 2024-01-31 18:55 | XRAY Report ---
PROCEDURE: Chest 2V INDICATIONS: SOB/WHEEZING TECHNIQUE: 2 views of the chest were acquired. COMPARISON: None. FINDINGS: Surgical changes and devices: None. Lungs and pleura: There are new patchy airspace opacities of the bilateral hemithoraces predominantl y in the bilateral mid and lower lung zones. No pneumothorax or pleural effusion. Mediastinum: Mediastinal contours appear normal. Heart size is normal. Bones and chest wall: No suspicious bony lesions. Overlying soft tissues appear unremarkable. IMPRESSION: Findings suggestive of multifocal pneumonia. Recommend follow-up chest radiograph 4-6 weeks after treatment to document resolution of findings and /or return to baseline exam. Reviewed by: Bandar Rivera MD on 01/31/2024 6:54 PM PDT Approved by: Bandar Rivera MD on 01/31/2024 6:54 PM PDT Station ID: [id number]
== END 2024-01-31 18:21 | disposition home or self-care (01) ==
LOC: DI.S 18:20
PROVIDERS: ATTEND Family Medicine
DX: R91.8 Other nonspecific abnormal finding of lung field (principal); R06.02 Shortness of breath; R06.2 Wheezing

== ENCOUNTER 2024-03-19 16:48 | Outpatient (CLI) | payer MEDICARE, BC ==
--- NOTE | 2024-03-19 17:48 | XRAY Report ---
Chest 2V HISTORY: ASTHMA COMPARISON: 01/31/2024. TECHNIQUE: 2 views of the chest are submitted for interpretation. FINDINGS/IMPRESSION: No pleural effusion or pneumothorax. No pulmonary edema or focal consolidation. Normal cardiomediastinal silhouette. Reviewed by: Dhara Serrano MD on 03/19/2024 5:47 PM PDT Approved by: Dhara Serrano MD on 03/19/2024 5:47 PM PDT Station ID: [id number]
== END 2024-03-19 16:49 | disposition home or self-care (01) ==
LOC: DI.S 16:48
PROVIDERS: ATTEND Family Medicine
DX: J45.901 Unspecified asthma with (acute) exacerbation (principal)